=== PATIENT | male | born 1985 | race Caucasian/White ===

== ENCOUNTER 2020-03-07 15:40 | Emergency (ER) | payer MEDICARE, SELFPAY ==
--- NOTE | 2020-03-07 15:47 | ED.GENADULT ---
HPI - General Adult General Chief complaint: Unspecified Stated complaint: rash, testicle pain, left hip pain Time Seen by Provider: 03/07/20 15:45 History of Present Illness HPI narrative: History limited by poor historian 35 yo male presents to the ED with multiple complaints. He reports that he has a long history of rashes and wounds that pop up suddenly and won't heal, although he doesn't have either at this time. He does have a few small scabs and excoriations. He says that he also gets pain in his testicles and sometimes they swell. It roates from side to side. He has no pain or swelling at this time. He additionally complains of just not feeling right and fatigue. He relays that he has been seen for all of these complaints previously and that no one can figure out what is going on. He beleives that it may all be related to being bitten by a pig years ago. He also thinks he may have syphilis, but he has previously been tested and has not had any sexual contact since that time. Related Data Home Medications Medication Instructions Recorded Confirmed asenapine maleate [Saphris] mg SUBLINGUAL 03/07/20 bupropion HCl mg PO 03/07/20 lisdexamfetamine [Vyvanse] 30 mg PO DAILY 03/07/20 03/07/20 Allergies Allergy/AdvReac Type Severity Reaction Status Date / Time No Known Allergies Allergy Verified 03/07/20 15:55 Review of Systems Constitutional: Constitutional: Reports body ache(s) and Reports fatigue ENT: Reports headache(s) Cardiovascular: Cardiovascular: Denies chest pain Respiratory: Respiratory: Denies dyspnea Gastrointestinal: Gastrointestinal: Reports nausea Genitourinary: Genitourinary: Reports scrotal swelling and Reports testicular pain Musculoskeletal: Musculoskeletal: Reports myalgias and Reports arthralgias Integumentary/Breasts: Skin/Breast: Reports rash Neurologic: Reports tingling PMFSH Past Medical History Medical History (Updated 03/15/20 @ 13:36 by Galileo Gonzalez MD) ADHD Anxiety Social History Social History (Updated 03/15/20 @ 13:37 by Galileo Gonzalez MD) Substance use type: former substance user Gender identity (if verbalized by the patient): Male Exam Const: General: healthy appearing and well developed Nutritional Appearance: well nourished Orientation/consciousness: patient oriented x3 HENMT: Head: normal to inspection Face and sinus: normal facial exam Neck: Neck: normal visual inspection and no lymphadenopathy Resp: Effort & Inspection: normal respiratory effort and able to speak in complete sentences Auscultation: clear to auscultation bilaterally Cardio: Rate: regular rate Rhythm: regular rhythm GI: GI Palp: No Tenderness to palpation present (GI) : Male General Exam: Yes normal external exam Penis: Yes normal penis Scrotum: scrotum normal Testes: Testes normal Skin: General skin exam: normal color and no rashes or lesions noted Other: mild scabs and excoriation to the upper arms Neuro: General: patient oriented x3 Cranial nerves: Yes CN's II-XII intact bilaterally Cognition (Neuro): normal cognition Speech: normal speech Gait exam (Neuro): Normal gait present Motor exam (neuro): 5/5 motor strength present throughout Extrem: General: normal to inspection and full ROM Psych: Affect: Anxious affect present Attitude: Guarded attititude/behavior present Thought process: Illogical thought process present Course Vital Signs Vital signs: Vital Signs Temperature 36.1 C L 03/07/20 15:49 Pulse Rate 74 03/07/20 15:49 Respiratory Rate 16 03/07/20 15:49 Blood Pressure 164/64 H 03/07/20 15:49 Pulse Oximetry 100 03/07/20 15:49 Temperature 36.1 C L 03/07/20 15:49 Pulse Rate 78 03/07/20 17:00 Respiratory Rate 17 03/07/20 17:00 Blood Pressure 150/76 H 03/07/20 17:00 Pulse Oximetry 99 03/07/20 17:00 Medical Decision Making Vital Signs Vital Signs: Vital Signs Temperature 36.1 C L 03/07/20 15:49 P
[2020-03-07 15:49] VITALS: BP 164/64; PULSE 74; RESP 16; TEMP 36.1; O2SAT 100
[2020-03-07 17:00] VITALS: BP 150/76; PULSE 78; RESP 17; O2SAT 99
== END 2020-03-07 17:04 | disposition home or self-care (01) ==
PROVIDERS: Emergency Provider Emergency Medicine
DX: L30.9 Dermatitis, unspecified (principal); N50.819 Testicular pain, unspecified; F90.9 Attention-deficit hyperactivity disorder, unspecified type; F41.9 Anxiety disorder, unspecified
CPT/HCPCS: 99283

== ENCOUNTER 2023-01-03 08:10 | Outpatient (CLI) | payer MEDICARE, SELFPAY ==
--- NOTE | ~2023-01-03 | US_ITS ---
EXAMINATION: US abdomen limited DATE: 01/03/2023 08:45 INDICATION: Abdominal hernia. TECHNIQUE: Multiple grayscale and Doppler ultrasound images of the abdomen were obtained. COMPARISON: None FINDINGS: There is a right inguinal hernia containing fat. There are normal right inguinal lymph node s. IMPRESSION: 1. Right inguinal hernia containing fat. Reviewed, dictated and finalized at location E.
--- NOTE | ~2023-01-03 | US_ITS ---
EXAMINATION: US soft tissue head and neck DATE: 01/03/2023 08:45 INDICATION: Left neck mass TECHNIQUE: Multiple grayscale and Doppler ultrasound images of the region of concern at the left neck were obtained. COMPARISON: None FINDINGS: There are couple normal-sized left jugular chain lymph nodes at the region of concern, both measuring 5 mm in maximal short axis diameter. No pathologically enlarged lymphadenopathy or other abnormal ma sses or fluid collections identified. IMPRESSION: 1. Unremarkable study with a couple normal-sized left jugular chain lymph nodes and no other abnormal masses or fluid collections. Reviewed, dictated and finalized at location A.
--- NOTE | ~2023-01-03 | XR_ITS ---
EXAMINATION: XR soft tissue neck DATE: 01/03/2023 09:04 INDICATION: Left neck mass. TECHNIQUE: 2 views of neck soft tissues were obtained. COMPARISON: None. FINDINGS: The adenoids, palatine tonsils, epiglottis, prevertebral soft tissues, and glottis are norm al. IMPRESSION: 1. Normal neck soft tissues. Reviewed, dictated and finalized at location E.
== END 2023-01-03 08:11 ==
LOC: MICIMG 08:12
PROVIDERS: PCP Emergency Medicine; Visit Provider Emergency Medicine
DX: K40.90 Unilateral inguinal hernia, without obstruction or gangrene, not specified as recurrent (principal)
CPT/HCPCS: 70360; 76536; 76705

== ENCOUNTER 2023-03-18 13:08 | Outpatient (CLI) | payer MEDICARE, SELFPAY ==
--- NOTE | ~2023-03-18 | CT_ITS ---
EXAMINATION: CT pelvis wo con DATE: 03/18/2023 13:41 INDICATION: Right lower quadrant abdominal pain. TECHNIQUE: Computed tomography (CT) of the pelvis was performed without intravenous contrast. Automat ed exposure control and iterative reconstruction technique were employed. The dose-length product was 300.94 mGy-cm. COMPARISON: None FINDINGS: There are no dilated loops of bowel. The appendix is normal. There are no pathologically en larged lymph nodes. There is no free intraperitoneal fluid. There is prominent fat in the inguinal ca nals that may be hernias. There is mild lumbar spondylosis. IMPRESSION: 1. Prominent fat in the inguinal canals that may be hernias. Reviewed, dictated and finalized at location A. C THERAPIST
== END 2023-03-18 13:09 ==
LOC: GOSHIMG 13:09
PROVIDERS: PCP Surgery; Visit Provider Surgery
DX: R10.31 Right lower quadrant pain (principal)
CPT/HCPCS: 72192